=== PATIENT | male | born 1975 | race Two or more races ===

== ENCOUNTER 2021-11-11 10:58 | Emergency (ER) | payer MEDICAID ==
[2021-11-11] MEDS: Ibuprofen 800 MG Tab PO ONE (12:40)
== END 2021-11-11 12:48 | disposition home or self-care (01) ==
LOC: FB.ED 10:58
DX: S01.05XA Open bite of scalp, initial encounter (principal); S61.451A Open bite of right hand, initial encounter; S01.352A Open bite of left ear, initial encounter; S60.312A Abrasion of left thumb, initial encounter; W54.0XXA Bitten by dog, initial encounter
CPT/HCPCS: 12002; 12013; 99283; A9270

== ENCOUNTER 2022-02-18 13:08 | Inpatient (IN) | payer MEDICAID ==
[2022-02-18] MEDS ORDERED: Ondansetron 4 MG Tab.DIS PO PRN (14:12)
[2022-02-18] MEDS: Acetaminophen/HYDROcodone 325-5 MG Tab PO PRN ×2 (14:38→21:05)
[2022-02-18 14:45] LABS: ESTIMATED GFR 111 mL/min (>60)
[2022-02-18] MEDS ORDERED: Sodium Chloride 0.9% 1,000 ML IV ONE (15:14)
[2022-02-18] MEDS ORDERED: Piperacillin/Tazobactam 3.375 GM in Sodium Chloride 0.9% 50 ML IV SCH (15:30)
[2022-02-18] MEDS: Enoxaparin 40 MG/0.4 ML Syringe SUBCUT SCH (15:33)
[2022-02-18] MEDS: VANCOmycin 1.25 GM/250 ML 1.25 GM in Premix Bag 1 BAG IV SCH (15:34)
[2022-02-18] MEDS: Acetaminophen 325 MG Tab PO PRN ×2 (15:45→23:11)
[2022-02-18] MEDS: Ibuprofen 400 MG Tab PO PRN ×2 (15:46→23:12)
[2022-02-18] MEDS: Piperacillin/Tazobactam 3.375 GM in Sodium Chloride 0.9% 50 ML IV SCH ×2 (16:51→21:40)
[2022-02-18] MEDS: LORazepam 0.5 MG Tab PO PRN (21:04)
[2022-02-19] MEDS: VANCOmycin 1.25 GM/250 ML 1.25 GM in Premix Bag 1 BAG IV SCH ×2 (03:00→15:43)
[2022-02-19] MEDS: Piperacillin/Tazobactam 3.375 GM in Sodium Chloride 0.9% 50 ML IV SCH ×4 (04:15→22:02)
[2022-02-19] MEDS: Sodium Chloride 0.9% 10 ML Syringe FLUSH PRN ×2 (04:50→22:11)
[2022-02-19] MEDS: Ibuprofen 400 MG Tab PO PRN ×2 (08:21→13:44)
[2022-02-19] MEDS: LORazepam 0.5 MG Tab PO PRN ×3 (08:22→22:11)
[2022-02-19] MEDS: Pantoprazole 40 MG Vial IVPUSH SCH (10:41)
[2022-02-19] MEDS: FLUoxetine 20 MG Cap PO SCH (13:45)
[2022-02-19] MEDS: Acetaminophen/HYDROcodone 325-5 MG Tab PO PRN ×2 (15:52→22:11)
[2022-02-19] MEDS ORDERED: Polyethylene Glycol 3350 Powder 17 GM Packet PO ONE (16:33)
[2022-02-19] MEDS ORDERED: Sennosides 8.6 MG Tab PO ONE (16:34)
[2022-02-19] MEDS: Enoxaparin 40 MG/0.4 ML Syringe SUBCUT SCH (16:49)
[2022-02-20] MEDS: VANCOmycin 1.25 GM/250 ML 1.25 GM in Premix Bag 1 BAG IV SCH (03:58)
[2022-02-20] MEDS: Sodium Chloride 0.9% 10 ML Syringe FLUSH PRN ×4 (04:01→05:37)
[2022-02-20] MEDS: Acetaminophen/HYDROcodone 325-5 MG Tab PO PRN ×3 (04:05→20:57)
[2022-02-20] MEDS: Piperacillin/Tazobactam 3.375 GM in Sodium Chloride 0.9% 50 ML IV SCH (04:56)
[2022-02-20] MEDS: Ibuprofen 400 MG Tab PO PRN ×3 (05:35→22:05)
[2022-02-20 07:22] LABS: ESTIMATED GFR 111 mL/min (>60)
[2022-02-20] MEDS: FLUoxetine 20 MG Cap PO SCH (09:23)
[2022-02-20] MEDS: Pantoprazole 40 MG Vial IVPUSH SCH (09:23)
[2022-02-20] MEDS: Sulfamethoxazole/Trimethoprim 800-160 MG Tab PO SCH ×2 (09:34→20:57)
[2022-02-20] MEDS: LORazepam 0.5 MG Tab PO PRN ×2 (12:53→20:58)
[2022-02-20] MEDS: Enoxaparin 40 MG/0.4 ML Syringe SUBCUT SCH (16:23)
[2022-02-21 06:50] LABS: ESTIMATED GFR 111 mL/min (>60)
[2022-02-21] MEDS: Sulfamethoxazole/Trimethoprim 800-160 MG Tab PO SCH (08:39)
[2022-02-21] MEDS: FLUoxetine 20 MG Cap PO SCH (08:39)
[2022-02-21] MEDS: Pantoprazole 40 MG Vial IVPUSH SCH (08:50)
== END 2022-02-21 11:05 | disposition home or self-care (01) | DRG 872 ==
LOC: EDBD → FB.MS 13:08
PROVIDERS: ADMIT Student in an Organized Health Care Education/Training Program; ATTEND Student in an Organized Health Care Education/Training Program
DX: A41.9 Sepsis, unspecified organism (principal); L03.114 Cellulitis of left upper limb; F32.A Depression, unspecified; F10.10 Alcohol abuse, uncomplicated; R74.01 Elevation of levels of liver transaminase levels; Z79.899 Other long term (current) drug therapy
CPT/HCPCS: 36415; 80053; 80202; 80307; 83605; 85025; 86140; 87040; A9270-GY; C9113; J1650; J2543; J3370; J3490; J7030

== ENCOUNTER 2023-07-23 13:47 | Emergency (ER) | payer MEDICAID ==
[2023-07-23] MEDS ORDERED: Sodium Chloride 0.9% 10 ML Syringe FLUSH PRN (13:58)
[2023-07-23 14:16] LABS: BASOPHILS PERCENT AUTO 0.5 % (0.3-3.8); EOSINOPHILS ABSOLUTE AUTO 0.1 x10-3/uL (0.0-0.6); EOSINOPHILS PERCENT AUTO 2.2 % (0.1-6.8); HEMATOCRIT 40.5 % (38.3-50.1); HEMOGLOBIN 13.8 g/dL (12.9-17.7); LYMPHOCYTES ABSOLUTE AUTO 1.5 x10-3/uL (0.5-4.5); LYMPHOCYTES PERCENT AUTO 22.8 % (15.8-45.3); MEAN CORPUSCULAR HEMOGLOBIN 30.4 pg (27.0-33.3); MEAN CORPUSCULAR HGB CONC 34.1 g/dL (28.7-35.3); MEAN PLATELET VOLUME 7.3 fL (6.7-11.0); MONOCYTES ABSOLUTE AUTO 0.3 x10-3/uL (0.0-1.2); NEUTROPHILS ABSOLUTE AUTO 4.5 x10-3/uL (1.7-6.9); NEUTROPHILS PERCENT AUTO 69.5 % (40.3-71.8); PLATELET COUNT,PLT 353 x10(3)uL (117-477); RED BLOOD CELL COUNT 4.55 x10(6)uL (3.90-5.90); WHITE BLOOD CELL COUNT,WBC 6.5 x10-3/uL (3.2-10.1)
[2023-07-23 14:23] LABS: BLOOD UREA NITROGEN,BUN 9 mg/dL (7-18); CALCIUM 8.4 mg/dL (8.6-10.2); CARBON DIOXIDE,CO2 28 mmol/L (21-32); CHLORIDE,CL 105 mmol/L (100-110); CREATININE 0.9 mg/dL (0.70-1.30); ESTIMATED GFR 106 mL/min (>60); GLUCOSE RANDOM 94 mg/dL (80-116); POTASSIUM,K 4.2 mmol/L (3.5-5.3); SODIUM,NA 141 mmol/L (135-145)
[2023-07-23 14:34] LABS: ALANINE AMINOTRANSFERASE,ALT 68 U/L (12-36); ALBUMIN 3.5 g/dL (3.5-5.2); ALKALINE PHOSPHATASE 80 IU/L (56-112); ASPARTATE AMNIOTRANSFERASE,AST 49 IU/L (5-25); BILIRUBIN TOTAL 0.8 mg/dL (0.1-1.3); MAGNESIUM 2.1 mg/dL (1.8-2.5)
[2023-07-23 14:38] LABS: ETHANOL BLOOD MEDICAL < 0.03 % (<0.03); TROPONIN I < 4.0 pg/mL (4.0-60.3)
[2023-07-23] MEDS: Sodium Chloride 0.9% 1,000 ML IV ONE (14:46)
== END 2023-07-23 17:37 | disposition home or self-care (01) ==
LOC: FB.ED 13:47
DX: S61.052A Open bite of left thumb without damage to nail, initial encounter (principal); E86.0 Dehydration; R55 Syncope and collapse; I10 Essential (primary) hypertension; F17.200 Nicotine dependence, unspecified, uncomplicated; Z79.899 Other long term (current) drug therapy; W54.0XXA Bitten by dog, initial encounter
CPT/HCPCS: 36415; 80053; 80307; 83735; 84484; 85025; 85379; 93005; 96360; 99285; J7030

== ENCOUNTER 2023-09-07 14:14 | Emergency (ER) | payer MEDICAID ==
[2023-09-07] MEDS ORDERED: Sodium Chloride 0.9% 10 ML Syringe FLUSH PRN (14:24)
[2023-09-07 14:45] LABS: BASOPHILS PERCENT AUTO 0.3 % (0.3-3.8); BLOOD UREA NITROGEN,BUN 12 mg/dL (7-18); CALCIUM 8.3 mg/dL (8.6-10.2); CARBON DIOXIDE,CO2 23 mmol/L (21-32); CHLORIDE,CL 101 mmol/L (100-110); CREATININE 0.8 mg/dL (0.70-1.30); EOSINOPHILS ABSOLUTE AUTO 0.1 x10-3/uL (0.0-0.6); EOSINOPHILS PERCENT AUTO 0.7 % (0.1-6.8); ESTIMATED GFR 110 mL/min (>60); GLUCOSE RANDOM 119 mg/dL (80-116); HEMATOCRIT 44.3 % (38.3-50.1); HEMOGLOBIN 15.2 g/dL (12.9-17.7); LYMPHOCYTES ABSOLUTE AUTO 1.1 x10-3/uL (0.5-4.5); LYMPHOCYTES PERCENT AUTO 9.2 % (15.8-45.3); MEAN CORPUSCULAR HEMOGLOBIN 30.6 pg (27.0-33.3); MEAN CORPUSCULAR HGB CONC 34.3 g/dL (28.7-35.3); MEAN CORPUSCULAR VOLUME 89.3 fL (80.8-98.7); MEAN PLATELET VOLUME 7.1 fL (6.7-11.0); MONOCYTES ABSOLUTE AUTO 0.8 x10-3/uL (0.0-1.2); MONOCYTES PERCENT AUTO 6.9 % (5.5-15.2); NEUTROPHILS ABSOLUTE AUTO 9.8 x10-3/uL (1.7-6.9); NEUTROPHILS PERCENT AUTO 82.9 % (40.3-71.8); PLATELET COUNT,PLT 362 x10(3)uL (117-477); POTASSIUM,K 3.7 mmol/L (3.5-5.3); RED BLOOD CELL COUNT 4.96 x10(6)uL (3.90-5.90); RED CELL DISTRIBUTION WIDTH 13.2 % (12.4-15.0); SODIUM,NA 138 mmol/L (135-145); WHITE BLOOD CELL COUNT,WBC 11.8 x10-3/uL (3.2-10.1)
[2023-09-07] MEDS: Sodium Chloride 0.9% 500 ML IV ONE ×2 (14:45→15:58)
[2023-09-07 14:51] LABS: ALANINE AMINOTRANSFERASE,ALT 87 U/L (12-36); ALKALINE PHOSPHATASE 168 IU/L (56-112); ASPARTATE AMNIOTRANSFERASE,AST 46 IU/L (5-25); BILIRUBIN TOTAL 1.2 mg/dL (0.1-1.3); MAGNESIUM 2.1 mg/dL (1.8-2.5); PROTEIN TOTAL,TP 7.9 g/dL (6.0-8.0)
[2023-09-07 14:57] LABS: ETHANOL BLOOD MEDICAL < 0.03 % (<0.03); TROPONIN I < 4.0 pg/mL (4.0-60.3)
[2023-09-07] MEDS: Ondansetron 4 MG/2 ML SDV IVPUSH ONE (15:01)
[2023-09-07] MEDS: LORazepam 2 MG/ML SDV IVPUSH ONE ×2 (15:37→16:43)
[2023-09-07] MEDS: Sodium Chloride 0.9% 1,000 ML IV SCH (15:41)
[2023-09-07 16:41] LABS: BILIRUBIN,URINE NEGATIVE (NEGATIVE); GLUCOSE,URINE NORMAL (NORMAL); KETONES,URINE 15 mg/dL (NEGATIVE); LEUKOCYTE ESTERASE,URINE NEGATIVE (NEGATIVE); NITRITE,URINE NEGATIVE (NEGATIVE); OCCULT BLOOD,URINE NEGATIVE (NEGATIVE); PROTEIN,URINE NEGATIVE (NEGATIVE); UROBILINOGEN,URINE NORMAL (NEGATIVE)
[2023-09-07] MEDS: Ketorolac 30 MG/ML SDV IVPUSH ONE (16:43)
[2023-09-07 16:47] LABS: APPEARANCE,URINE CLEAR (CLEAR); COLOR,URINE YELLOW (YELLOW); RBC,URINE NOT SEEN (0-5); SQUAMOUS EPITHELIAL CELLS,UR RARE (NS,R,O); WBC,URINE 0-5 (0-5)
[2023-09-07 16:55] LABS: AMPHETAMINES SCREEN, URINE NEGATIVE (NEGATIVE); BENZODIAZEPINES SCREEN,URINE NEGATIVE (NEGATIVE); METHADONE SCREEN, URINE NEGATIVE (NEGATIVE); METHAMPHETAMINE SCREEN, URINE NEGATIVE (NEGATIVE); THC SCREEN,URINE POSITIVE (NEGATIVE)
[2023-09-07 16:56] LABS: BARBITURATE SCREEN,URINE NEGATIVE (NEGATIVE); BUPRENORPHINE SCREEN,URINE NEGATIVE (NEGATIVE); OXYCODONE SCREEN,URINE NEGATIVE (NEGATIVE)
[2023-09-07 17:15] LABS: BACTERIA,URINE NOT SEEN (NS)
[2023-09-07] MEDS: diphenhydrAMINE 50 MG/ML SDV IVPUSH ONE (17:49)
[2023-09-07] MEDS: Prochlorperazine 10 MG/2 ML SDV IVPUSH ONE (17:50)
== END 2023-09-07 19:15 | disposition other institution (70) ==
LOC: FB.ED 14:14
DX: R51.9 Headache, unspecified (principal); R11.2 Nausea with vomiting, unspecified; E86.0 Dehydration; F10.130 Alcohol abuse with withdrawal, uncomplicated; I10 Essential (primary) hypertension; Z87.891 Personal history of nicotine dependence; Z79.899 Other long term (current) drug therapy
CPT/HCPCS: 70450; 80053; 80307; 81001; 83605; 83690; 83735; 84484; 85025; 93005; 93010; 96361; 96374; 96375; 96376; 99284; 99285-25; J0780; J1200; J1885; J2060; J2405; J7030; J7040